=== PATIENT | male | born 1960 | race African-American/Black ===

== ENCOUNTER 2017-05-25 15:51 | Inpatient (IN) | payer SELFPAY ==
--- NOTE | 2017-05-25 17:49 | CT ---
CT HEAD WITHOUT CONTRAST: Date: 05/25/17 Multiple axial tomograms obtained through the head without IV enhancement. HISTORY: Left side weakness. No comparison. FINDINGS: The ventricles have normal size and position. No evidence of focal mass or hemorrhage. No evidence of cortical infarct. There is a subtle lucency seen in the right thalamus peripherally. Subacute thalamic lacunar infarct cannot be excluded. This could be further evaluated with MRI. The sinuses and mastoids are aerated. IMPRESSION: Subtle lucency in the region of the right thalamus. Subacute lacunar infarct not excluded. Consider f ollow-up MRI of brain to rule out acute or subacute lacunar infarct. There is no evidence of cortical infarct or hemorrhage. POS: [facility]
[2017-05-25 17:52] LABS: #Eosinphils 0.1 thou/uL (0.0-0.7); #Lymphocytes 2.6 thou/uL (1.20-3.40); #Monocytes 0.6 thou/uL (0.11-0.59); #Neutrophils 3.3 thou/uL (1.40-6.50); %Basophils 0.7 % (0.0-1.0); %Eosinophils 0.8 % (0.0-10.0); %Monocytes 8.6 % (0.0-10.0); %Neutrophils 49.9 % (42.0-75.0); Hemoglobin 12.8 g/dL (14.0-18.0); Mean Corpuscular HGB CONC 33.4 g/dL (32.0-36.0); Mean Corpuscular Hemoglobin 28.7 pg (27.0-31.0); Mean Corpuscular Volume 86.1 fl (80.0-94.0); Mean Platelet Volume 8.6 fL (7.4-10.4); Platelet Count 187 thou/uL (130-400); Red Blood Cell (RBC) Count 4.45 mill/uL (4.70-6.10); White Blood Cell (WBC) Count 6.6 thou/uL (4.8-10.8)
[2017-05-25 18:00] LABS: PTT 26.5 SEC (22.9-36.1); Prothrombin Time 12.8 SEC (12.0-14.7)
[2017-05-25 18:19] LABS: Anion Gap 14 mmol/L (10-20); BUN (Urea Nitrogen) 13 mg/dL (8.4-25.7); CK (CPK) 103 U/L (30-200); Calc. Creatinine Clearance 0 mL/min (70-130); Calcium 9.9 mg/dL (7.8-10.44); Carbon Dioxide 28 mmol/L (22-29); Chloride 97 mmol/L (98-107); Estimated GFR-MDRD 57; Glucose 236 mg/dL (70-105); Potassium 3.5 mmol/L (3.5-5.1); Sodium 135 mmol/L (136-145)
[2017-05-25 18:22] LABS: CKMB 1.5 ng/mL (0-6.6); Troponin I Less than 0.010 ng/mL (< 0.028)
[2017-05-25] MEDS ORDERED: Aspirin 325 MG TAB ONE (19:08)
[2017-05-25] MEDS ORDERED: Nitroglycerin 2% Ointment 1 INCH/1 GM Packet ONE (19:08)
[2017-05-25] MEDS ORDERED: Labetalol HCl 100 MG/20 ML VIAL ONE (19:08)
[2017-05-25] MEDS ORDERED: Acetaminophen 325 MG TAB PO PRN (19:44)
[2017-05-25] MEDS ORDERED: Bisacodyl 5 MG TAB PO PRN (19:44)
[2017-05-25] MEDS ORDERED: Acetaminophen 650 MG Suppository PR PRN (19:44)
[2017-05-25] MEDS ORDERED: Dextrose 5% in Water 1,000 ML IV PRN (19:47)
[2017-05-25] MEDS ORDERED: Dextrose 50% Abboject 50 ML SYRINGE SLOW IVP PRN (19:47)
--- NOTE | 2017-05-25 20:13 | HP ---
PRIMARY CARE PROVIDER: Dr. Shilpa Vallejo, she works at [employer] in [place], phone number CHIEF COMPLAINT: Weakness. HISTORY OF PRESENT ILLNESS: Mr. Rodriguez is a pleasant 56-year-old gentleman who was seen at [facility] on 05/25/2017. He reports that 3 days ago, he developed left-sided weakness. He also reports left-sided numbness. He also reports that he is unable to lift his left lower extremity while lying on bed. He also repor ts some pain below his left knee. When he walks, his left lower extremity drags. He was initially s een in [place]. There was no CT scan since it was broken. He was sent to [facility]. He denies any slurring of speech. He denies any facial droop or vision changes. He denies any nause a, vomiting, diarrhea, or abdominal pain. He reports that he is occasionally noncompliant with his medications because it makes him fatigue and he is unable to work from the fatigue. REVIEW OF SYSTEMS: The following complete review of systems was negative, unless otherwise mentioned in the HPI or below: Constitutional: Weight loss or gain, ability to conduct usual activities. Skin: Rash, itching. Eyes: Double vision, pain. ENT/Mouth: Nose bleeding, neck stiffness, pain, tenderness. Cardiovascular: Palpitations, dyspnea on exertion, orthopnea. Respiratory: Shortness of breath, wheezing, cough, hemoptysis, fever or night sweats. Gastrointestinal: Poor appetite, abdominal pain, heartburn, nausea, vomiting, constipation, or diarrhea. Genitourinary: Urgency, frequency, dysuria, nocturia. Musculoskeletal: Pain, swelling. Neurologic/Psychiatric: Anxiety, depression. Allergy/Immunologic: Skin rash, bleeding tendency. PAST MEDICAL HISTORY: Significant for hypertension, diabetes, and dyslipidemia. PAST SURGICAL HISTORY: None. FAMILY HISTORY: Significant for stroke in his paternal aunt. SOCIAL HISTORY: The patient denies tobacco use or recreational drug use. He drinks 1 or more alcoho lic beverages on most days. ALLERGIES: No known drug allergies. CURRENT MEDICATIONS: Include lisinopril 5 mg daily, glipizide 10 mg daily, metformin 1000 mg 2 times a day, simvastatin 40 mg daily. PHYSICAL EXAMINATION: GENERAL: Mr. Rodriguez is awake and alert, not in acute distress. VITAL SIGNS: Blood pressure is 152/106, pulse is 99, he is breathing at rate of 16, and saturating 9 8% on room air. He is afebrile. HEENT: No scleral icterus. No conjunctival pallor. ENT: Moist mucosal membranes, no oropharyngeal erythema or exudates. NECK: Supple, nontender, normal range of movement. Trachea is midline. RESPIRATORY: Accessory muscles of breathing are not active. Chest wall movements are symmetric bila terally. LUNGS: Clear to auscultation without wheeze, rhonchi or crepitations. CARDIOVASCULAR: S1 and S2 are heard, regular. LUNGS: Peripheral pulses palpable. No carotid bruit, no pericardial rub. ABDOMEN: Soft, nontender, bowel sounds heard, no hepatomegaly, no splenomegaly. NEUROLOGIC: Cranial nerves II-XII are intact. Power is 4+/5 in the left upper extremity, 3/5 in the left lower extremity, 5/5 in right upper and right lower extremity. He has diminished sensation ove r the left half of his body as well as face. Txemer-ed-uhfy test is normal. Rapid alternating movem ents are normal. Deep tendon reflexes are 2+. Plantar are downgoing bilaterally. MUSCULOSKELETAL: Power in the 4 extremities as described above. SKIN: No rashes or subcutaneous nodules. LYMPHATIC: No cervical lymphadenopathy. PSYCHIATRIC: Normal mood, normal affect, the patient is oriented to person, place, and time. LABORATORY DATA: Mr. Rodriguez's labs and investigations were reviewed. I reviewed his electrocardiogram , which shows normal sinus rhythm, no ST changes to suggest an acute coronary syndrome. I also revie wed noncontrast CT scan of the brain, which shows lucency in the region of the right thalamus. He whaley s a normal white count, normocytic anemia with hemoglobin of 12.8, normal platelet count, INR 1.0, de creased sodium of 135, normal potassium, and normal creatinine. Troponin I is less than 0.010. ASSESSMENT AND PLAN: Mr. Rodriguez is a pleasant 56-year-old gentleman who was seen at [facility] on 05/25/2017. His problem list includes: 1. Weakness: His presentation is consistent with a cerebrovascular accident. He will be admitted t o the [facility] to the stroke floor. We will get MRI of the brain, 2D echocardiogram, carotid Doppler s and Neurology Service consultation. 2. Diabetes mellitus. The patient is not clear whether he is compliant with his medications. Start insulin sliding scale and Accu-Cheks and resume home medications. 3. Hypertension: Monitor vital signs, titrate antihypertensives as needed. 4. Dyslipidemia: Continue statins. 5. Hyponatremia: Mild, recheck. Many thanks for allowing me to participate in your patient's care. Please feel free to contact me wi th any questions or concerns. LEVEL OF RISK: High. LEFT OF COMPLEXITY: High.
[2017-05-25] MEDS ORDERED: Atorvastatin Calcium 10 MG TAB PO SCH (21:00)
[2017-05-25 22:02] LABS: Troponin I Less than 0.010 ng/mL (< 0.028)
[2017-05-25 23:16] VITALS: BMI 28.9
[2017-05-26 01:35] LABS: Troponin I 0.014 ng/mL (< 0.028)
[2017-05-26 05:32] LABS: #Basophils 0.1 thou/uL (0.0-0.2); #Lymphocytes 2.3 thou/uL (1.20-3.40); #Monocytes 0.7 thou/uL (0.11-0.59); #Neutrophils 2.4 thou/uL (1.40-6.50); %Basophils 0.9 % (0.0-1.0); %Eosinophils 0.7 % (0.0-10.0); %Lymphocytes 42.1 % (21.0-51.0); %Monocytes 12.1 % (0.0-10.0); %Neutrophils 44.1 % (42.0-75.0); Hemoglobin 11.6 g/dL (14.0-18.0); Mean Corpuscular HGB CONC 33.1 g/dL (32.0-36.0); Mean Corpuscular Hemoglobin 28.6 pg (27.0-31.0); Mean Corpuscular Volume 86.5 fl (80.0-94.0); Mean Platelet Volume 8.6 fL (7.4-10.4); Platelet Count 169 thou/uL (130-400); RBC Distribution Width 14.1 % (11.5-14.5); Red Blood Cell (RBC) Count 4.05 mill/uL (4.70-6.10); White Blood Cell (WBC) Count 5.5 thou/uL (4.8-10.8)
[2017-05-26 05:40] LABS: Anion Gap 15 mmol/L (10-20); BUN (Urea Nitrogen) 18 mg/dL (8.4-25.7); Calc. Creatinine Clearance 61 mL/min (70-130); Calcium 9.4 mg/dL (7.8-10.44); Carbon Dioxide 25 mmol/L (22-29); Cardiac Risk 9.1 (Less than 4.5); Chloride 96 mmol/L (98-107); Cholesterol 317 mg/dl (< 200 Desired); Estimated GFR-MDRD 51; Glucose 341 mg/dL (70-105); HDL Cholesterol 35 mg/dL (>60 Neg Risk); Potassium 3.6 mmol/L (3.5-5.1); Sodium 132 mmol/L (136-145); Triglycerides 431 mg/dL (Less than 150)
[2017-05-26] MEDS: HumaLOG 300 UNITS/3 ML VIAL SC PRN ×4 (05:44→20:32)
[2017-05-26] MEDS ORDERED: Lorazepam 2 MG/ML VIAL SLOW IVP SCH (10:15)
[2017-05-26] MEDS: Aspirin 325 mg Enteric Coated Tablet PO SCH (10:46)
[2017-05-26] MEDS: Enoxaparin Sodium 40 MG/0.4 ML SYRINGE SC SCH (10:47)
[2017-05-26] MEDS: glipiZIDE 5 MG TAB PO SCH (10:47)
--- NOTE | 2017-05-26 12:14 | ULT ---
ULTRASOUND CAROTID DOPPLER: Date: 05/26/17 HISTORY: CVA. COMPARISON: None. FINDINGS: There is mild increased peak systolic velocity of distal left internal carotid up to 133 cm/second. I ncreased flow in left vertebral artery. Antegrade flow right vertebral artery. IMPRESSION: 50-69% stenosis distal left internal carotid artery. CT angiogram recommended. CODE T. POS: [facility]
--- NOTE | 2017-05-26 14:43 | MRI ---
MRI BRAIN WITHOUT IV CONTRAST: 05/26/2017 HISTORY: Left-sided weakness. Abnormal CT head. COMPARISON: CT head from 05/25/2017. FINDINGS: Corresponding to the low density area in the right thalamus on the CT exam, there is an oval-shaped a jessy of increased FLAIR and T2 weighted signal intensity seen in the right thalamus, which does not de monstrate restricted diffusion and is likely related to a more remote lacunar infarction. There is n o acute infarction visualized. There is mild cerebral volume loss, not unexpected for the patient's age. The septum pellucidum and third ventricle are in the midline. Grossly appropriate flow voids are demonstrated at the base of t he brain. There is prominent motion artifact on this exam, but this exam is diagnostic. The paranasal sinuses, orbits, and skull base have a normal MRI appearance. Incidental note is made of an empty sella turcica. IMPRESSION: 1. Findings most compatible with a remote lacunar infarction in the right thalamus. No acute infarc tion is appreciated. 2. Mild cerebral and cerebellar volume loss. 3. Incidental note made of an empty sella turcica. POS: [facility]
--- NOTE | 2017-05-26 16:43 | PDOC.PN ---
- Subjective Encounter Start Date: 05/26/17 Encounter Start Time: 11:00 Pt seen for followup re: weakness. Reports LLE strength is better. No chest pain, shortness of breath, fevers or chills. - Objective MAR Reviewed: Yes Vital Signs & Weight: Vital Signs (12 hours) Temp Pulse Pulse Pulse Resp BP BP 05/26/17 16:00 98.0 F 84 16 05/26/17 12:00 98.1 F 86 14 05/26/17 11:56 86 87 137/83 166/90 H 05/26/17 07:46 85 88 155/84 H 143/81 H 05/26/17 07:30 98.5 F 84 16 05/26/17 07:20 98.6 F 84 16 BP Pulse Ox 05/26/17 16:00 150/85 H 96 05/26/17 12:00 137/86 100 05/26/17 11:56 05/26/17 07:46 05/26/17 07:30 98 05/26/17 07:20 155/84 H 98 I&O: 05/25/17 05/26/17 05/27/17 06:59 06:59 06:59 Intake Total 600 Output Total 350 Balance 250 Result Diagrams: 05/26/17 05:15 05/26/17 05:15 Additional Labs: Accuchecks 05/26/17 05/26/17 05/26/17 15:52 11:07 05:36 POC Glucose 294 H 305 H 323 H EKG Reviewed by me: Yes (Tele: NSR) Phys Exam - Physical Examination Constitutional: NAD HEENT: PERRLA, moist MMs, sclera anicteric, oral pharynx no lesions Neck: no nodes, no JVD, supple, full ROM Respiratory: no wheezing, no rales, no rhonchi, clear to auscultation bilateral Cardiovascular: RRR, no rub Gastrointestinal: soft, non-tender, no distention, positive bowel sounds Musculoskeletal: pulses present Neurological: moves all 4 limbs Power 3+/3 LLE, 4+/5 LUE, 5/5 RUE and RLE Psychiatric: normal affect Skin: no rash Dx/Plan (1) Weakness Code(s): R53.1 - WEAKNESS Status: Acute (2) Ischemic cerebrovascular accident (CVA) Code(s): I63.9 - CEREBRAL INFARCTION, UNSPECIFIED Status: Suspected (3) DM2 (diabetes mellitus, type 2) Status: Chronic (4) HTN (hypertension) Code(s): I10 - ESSENTIAL (PRIMARY) HYPERTENSION Status: Chronic (5) Dyslipidemia Code(s): E78.5 - HYPERLIPIDEMIA, UNSPECIFIED Status: Chronic - Plan PT/OT, out of bed/ambulate * . Continue aspirin, statin. Continue accuchecks, insulin sliding scale. Monitor vital signs, titrate antihypertensives as needed. Review of Systems - Review of Systems Constitutional: weakness. negative: fever, chills, sweats, malaise Respiratory: negative: Cough, Dry, Shortness of Breath, Hemoptysis, SOB with Excertion, Pleuritic Pain, Sputum, Wheezing Cardiovascular: negative: chest pain, palpitations, orthopnea, paroxysmal nocturnal dyspnea, edema, light headedness Gastrointestinal: negative: Nausea, Vomiting, Abdominal Pain, Diarrhea, Constipation, Melena, Hematochezia Genitourinary: negative: Dysuria, Frequency, Incontinence, Hematuria, Retention Neurological: Weakness - Medications/Allergies Allergies/Adverse Reactions: Allergies Allergy/AdvReac Type Severity Reaction Status Date / Time No Known Drug Allergies Allergy Verified 05/25/17 23:40 Medications: Current Medications Acetaminophen (Tylenol) 650 mg PO Q4H PRN PRN Reason: Headache/Fever or Pain Acetaminophen (Tylenol) 650 mg [place] Q4H PRN PRN Reason: Headache/Fever or Pain Aspirin (Ecotrin) 325 mg PO DAILY [facility] Last Admin: 05/26/17 10:46 Dose: 325 mg Atorvastatin Calcium (Lipitor) 20 mg PO HS [facility] Bisacodyl (Dulcolax) 10 mg PO DAILYPRN PRN PRN Reason: Constipation Dextrose/Water (Dextrose 50%) 25 gm SLOW IVP PRN PRN PRN Reason: Hypoglycemia Enoxaparin Sodium (Lovenox) 40 mg SC 0900 [facility] Last Admin: 05/26/17 10:47 Dose: 40 mg Glipizide (Glucotrol) 5 mg PO DAILY [facility] Last Admin: 05/26/17 10:47 Dose: 5 mg Glucagon (Glucagon) 1 mg IM PRN PRN PRN Reason: Hypoglycemia Dextrose/Water (D5w) 1,000 mls @ 0 mls/hr IV .Q0M PRN; As Directed PRN Reason: Hypoglycemia Sodium Chloride (Normal Saline 0.9%) 1,000 mls @ 100 mls/hr IV .Q10H PARVIN Influenza Virus Vaccine (Fluzone Quad [id number] Syringe) 0.5 ml IM .ONCE ONE Stop: 05/27/17 09:01 Insulin Human Lispro (Humalog) 0 units SC .MILD SLIDING SCALE PRN PRN Reason: Mild Correctional Scale Last Admin: 05/26/17 16:29 Dose: 4 unit Pneumococcal Polyvalent Vaccine (Pneumovax 23) 0.5 ml IM .ONCE ONE Stop: 05/27/17 09:01
[2017-05-26] MEDS: Sodium Chloride 0.9% 1,000 ML IV SCH (17:37)
--- NOTE | 2017-05-26 20:55 | CON ---
DATE OF CONSULTATION: 05/26/2017 CONSULTING PHYSICIAN: Hospitalist Service. IMPRESSION: 1. Right thalamic stroke with hemisensory deficit on the left. 2. Hypertension. 3. Diabetes. PLAN: 1. Aspirin 81 mg per day. 2. Restart statin. 3. Patient can be discharged home. HISTORY: Mr. Rodriguez is a 56-year-old man who presented with acute onset of left-sided numbness and rosendo e mild incoordination. He never had any symptoms like this in the past. His initial CT showed small area of ischemia in the right thalamus. His carotid ultrasound does not show any stenosis. Echocar diogram is pending. He was not compliant with his statin. He was not taking aspirin daily. PAST MEDICAL HISTORY: As listed above. ALLERGIES: None. SOCIAL HISTORY: No tobacco or illicit drug use. FAMILY HISTORY: Noncontributory. REVIEW OF SYSTEMS: No complaint of headache, nausea, vomiting, vertigo, double vision, trouble swall owing or trouble speaking. PHYSICAL EXAMINATION: GENERAL: He is a healthy-appearing middle-aged man in no distress. HEENT: Pupils are equal and reactive. Conjunctivae clear. Oropharynx clear. NECK: Supple. EXTREMITIES: No cyanosis or edema. NEUROLOGIC: He is alert and appropriate. Hi speech is fluent and clear. Cranial nerves are intact other than diminished facial sensation on the left jaw. 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 He can walk independently with a mild limp. EKG shows sinus rhythm. SUMMARY: A middle-aged man with risk factors for small-vessel disease. He seems to be doing well de spite his thalamic stroke. I would be happy to follow up with him as an outpatient.
[2017-05-26] MEDS ORDERED: Atorvastatin Calcium 20 MG TAB PO SCH (21:00)
[2017-05-27] MEDS: Sodium Chloride 0.9% 1,000 ML IV SCH (04:04)
[2017-05-27] MEDS: HumaLOG 300 UNITS/3 ML VIAL SC PRN (05:32)
[2017-05-27 06:02] LABS: #Monocytes 0.7 thou/uL (0.11-0.59); #Neutrophils 2.1 thou/uL (1.40-6.50); %Basophils 0.6 % (0.0-1.0); %Eosinophils 0.9 % (0.0-10.0); %Lymphocytes 41.2 % (21.0-51.0); %Neutrophils 43.3 % (42.0-75.0); Hemoglobin 11.5 g/dL (14.0-18.0); Mean Corpuscular HGB CONC 32.3 g/dL (32.0-36.0); Mean Corpuscular Hemoglobin 28.1 pg (27.0-31.0); Mean Platelet Volume 8.9 fL (7.4-10.4); Platelet Count 191 thou/uL (130-400); RBC Distribution Width 14.2 % (11.5-14.5); White Blood Cell (WBC) Count 4.9 thou/uL (4.8-10.8)
[2017-05-27 06:28] LABS: Anion Gap 12 mmol/L (10-20); BUN (Urea Nitrogen) 16 mg/dL (8.4-25.7); Calc. Creatinine Clearance 89 mL/min (70-130); Calcium 9.2 mg/dL (7.8-10.44); Carbon Dioxide 27 mmol/L (22-29); Chloride 99 mmol/L (98-107); Estimated GFR-MDRD 79; Glucose 268 mg/dL (70-105); Potassium 3.9 mmol/L (3.5-5.1); Sodium 134 mmol/L (136-145)
[2017-05-27] MEDS ORDERED: FLU VACC QS2017-18 36 mo. & older 0.5 ML SYRINGE IM ONE (09:00)
--- NOTE | 2017-05-27 09:55 | CT ---
CT ANGIOGRAM NECK WITH IV CONTRAST AND 3D RECONSTRUCTIONS: DATE: 05/27/17. HISTORY: Recent CVA. Evaluate for carotid stenosis. TECHNIQUE: Contiguous axial CT images are obtained through the neck from the level of the aortic arch to the bas e of the brain after the administration of intravenous contrast. Three-D reconstruction images are p rovided. FINDINGS: There is a normal arrangement of the great vessels at the aortic arch which are patent. There is pro minent streak artifact through the region of the innominate artery and most proximal right internal c arotid artery limiting adequate evaluation, but the vessels in this location do appear patent. Bilat eral subclavian arteries are patent and the bilateral common carotid arteries are otherwise widely pa tent. The bilateral internal and external carotid arteries are patent. There is mild atheroscleroti c plaque seen involving the proximal left internal carotid artery, but there is less than 50% maximal stenosis according to NASCET criteria. No significant atherosclerotic narrowing is seen involving t he right internal carotid artery again based on MASCET criteria. The bilateral vertebral arteries are patent. The left vertebral artery is dominant. The visualized basilar artery is patent. The bilateral parotid glands and submandibular glands have a normal appearance. The thyroid gland is normal in appearance. The lung apices are clear. IMPRESSION: 1. Mild atherosclerotic narrowing seen at the origin and involving the proximal left internal caroti d artery, but there is less than 50% maximal stenosis involving the left internal carotid artery. 2. The right internal carotid artery is widely patent. 3. Patent bilateral vertebral arteries. POS: [facility]
[2017-05-27] MEDS: glipiZIDE 5 MG TAB PO SCH (10:08)
[2017-05-27] MEDS: Enoxaparin Sodium 40 MG/0.4 ML SYRINGE SC SCH (10:09)
[2017-05-27] MEDS: Aspirin 325 mg Enteric Coated Tablet PO SCH (10:09)
--- NOTE | 2017-05-27 12:17 | PDOC.PN ---
- Subjective Encounter Start Date: 05/27/17 Encounter Start Time: 07:00 Pt seen for followup re: weakness. Denies chest pain, shortness of breath, fevers or chills. Able to move LLE better. - Objective MAR Reviewed: Yes Vital Signs & Weight: Vital Signs (12 hours) Temp Pulse Resp BP Pulse Ox 05/27/17 11:40 98 F 85 20 153/93 H 99 05/27/17 08:10 97.6 F 100 20 97 05/27/17 08:00 97.6 F 100 20 134/79 100 05/27/17 04:00 98.5 F 87 16 125/83 98 05/27/17 00:22 98.2 F 90 16 137/72 98 I&O: 05/26/17 05/27/17 05/28/17 06:59 06:59 06:59 Intake Total 2464 Output Total 2650 Balance -186 Result Diagrams: 05/27/17 05:31 05/27/17 05:31 Additional Labs: Accuchecks 05/27/17 05/27/17 05/26/17 11:39 05:32 20:33 POC Glucose 219 H 260 H 279 H 05/26/17 15:52 POC Glucose 294 H EKG Reviewed by me: Yes (Tele: NSR) Phys Exam - Physical Examination Constitutional: NAD HEENT: moist MMs Neck: supple Respiratory: clear to auscultation bilateral Cardiovascular: RRR Gastrointestinal: soft Power 3+/5 LLE, 4+/5 LUE Psychiatric: normal affect Skin: no rash Dx/Plan (1) Weakness Code(s): R53.1 - WEAKNESS Status: Acute (2) Ischemic cerebrovascular accident (CVA) Code(s): I63.9 - CEREBRAL INFARCTION, UNSPECIFIED Status: Suspected (3) DM2 (diabetes mellitus, type 2) Status: Chronic (4) HTN (hypertension) Code(s): I10 - ESSENTIAL (PRIMARY) HYPERTENSION Status: Chronic (5) Dyslipidemia Code(s): E78.5 - HYPERLIPIDEMIA, UNSPECIFIED Status: Chronic (6) Noncompliance with medication regimen Code(s): Z91.14 - PATIENT'S OTHER NONCOMPLIANCE WITH MEDICATION REGIMEN Status : Chronic - Plan PT/OT, out of bed/ambulate * . Continue aspirin, statin. Monitor vital signs, titrate antihypertensives as needed. Continue insulin sliding scale, accuchecks. Review of Systems - Review of Systems Respiratory: negative: Cough, Dry, Shortness of Breath, Hemoptysis, SOB with Excertion, Pleuritic Pain, Sputum, Wheezing Cardiovascular: negative: chest pain, palpitations, orthopnea, paroxysmal nocturnal dyspnea, edema, light headedness Neurological: Weakness - Medications/Allergies Allergies/Adverse Reactions: Allergies Allergy/AdvReac Type Severity Reaction Status Date / Time No Known Drug Allergies Allergy Verified 05/25/17 23:40 Medications: Current Medications Acetaminophen (Tylenol) 650 mg PO Q4H PRN PRN Reason: Headache/Fever or Pain Last Admin: 05/27/17 04:11 Dose: 650 mg Acetaminophen (Tylenol) 650 mg [place] Q4H PRN PRN Reason: Headache/Fever or Pain Aspirin (Ecotrin) 325 mg PO DAILY [facility] Last Admin: 05/27/17 10:09 Dose: 325 mg Atorvastatin Calcium (Lipitor) 20 mg PO HS [facility] Last Admin: 05/26/17 20:29 Dose: 20 mg Bisacodyl (Dulcolax) 10 mg PO DAILYPRN PRN PRN Reason: Constipation Dextrose/Water (Dextrose 50%) 25 gm SLOW IVP PRN PRN PRN Reason: Hypoglycemia Enoxaparin Sodium (Lovenox) 40 mg SC 0900 [facility] Last Admin: 05/27/17 10:09 Dose: 40 mg Glipizide (Glucotrol) 5 mg PO DAILY [facility] Last Admin: 05/27/17 10:08 Dose: 5 mg Glucagon (Glucagon) 1 mg IM PRN PRN PRN Reason: Hypoglycemia Dextrose/Water (D5w) 1,000 mls @ 0 mls/hr IV .Q0M PRN; As Directed PRN Reason: Hypoglycemia Sodium Chloride (Normal Saline 0.9%) 1,000 mls @ 100 mls/hr IV .Q10H [facility] Last Admin: 05/27/17 04:04 Dose: 1,000 mls Insulin Human Lispro (Humalog) 0 units SC .MILD SLIDING SCALE PRN PRN Reason: Mild Correctional Scale Last Admin: 05/27/17 05:32 Dose: 4 unit
[2017-05-27] MEDS ORDERED: Iopamidol 370 76% 100 ML VIAL ONE (12:44)
[2017-05-27 15:20] VITALS: BP 135/78; TEMP 98.1
--- NOTE | 2017-05-28 00:34 | DIS ---
DATE OF ADMISSION: 05/25/2017 DATE OF DISCHARGE: 05/27/2017 PRIMARY CARE PROVIDER: YONI Gunn in [place], [place]. DISCHARGE DIAGNOSES: 1. Weakness. 2. Right thalamic stroke with hemisensory deficit on the left. SECONDARY DIAGNOSES: Hypertension, dyslipidemia, diabetes mellitus, and medication noncompliance. CONDITION OF PATIENT ON THE DAY OF DISCHARGE: Stable. I assessed Mr. Rodriguez on the day of discharge. Please refer to my daily hospitalist's progress note for further details regarding this [id number] encounter. DISCHARGE MEDICATIONS: Aspirin 325 mg daily, glipizide 5 mg daily, lisinopril 5 mg daily, metformin 1000 mg daily, and simvastatin 40 mg daily. HOSPITAL COURSE: Mr. Rodriguez is a pleasant 56-year-old gentleman who was admitted to [facility] for left-sided weakness and numbness on 05/25/2017. He was seen by Neurology Service as well as by Therapy Services. He improved in terms of strength, although he continues to have sig nificant left lower extremity weakness. A 2D echocardiogram on 05/26/2017, showed left ventricular ejection fraction of 60% to 65%, normal ri ght ventricular size and function, normal sized left atrium, normal sized right atrium, mild mitral r egurgitation, mild tricuspid regurgitation and pulmonic regurgitation. He also had MRI of the brain on 05/26/2017, which showed findings most compatible with remote lacunar infarct in the right thalamu s. He also had an incidental finding of an empty sella turcica. His TSH was normal. He also had ca rotid Dopplers on 05/26/2017, which showed 50% to 69% stenosis of the distal left internal carotid ar danielle. He went on to have CT angiogram on 05/27/2017, after hydration because his creatinine was elev ated on 05/26/2017. It showed mild atherosclerotic narrowing at the origin and involving the proxima l left internal carotid artery, but less than 50% maximal stenosis involving the left internal caroti d artery. Right internal carotid artery was widely patent. His creatinine normalized on 05/27/2017. Medication compliance and its importance were emphasized to him by me. Many thanks for allowing me to participate in your patient's care. Please feel free to contact me wi th any questions or concerns. On the day of discharge, he has a white count of 4900, hemoglobin 11.5, platelet count 191,000. Sodi um 134, creatinine 1.15, and potassium 3.9. CONSULTATIONS DURING THIS HOSPITALIZATION: Neurology, Dr. Ornelas. DISCHARGE DESTINATION: Home. TOTAL AMOUNT OF TIME SPENT AND COORDINATING THIS DISCHARGE: Thirty eight minutes.
[2017-05-28] MEDS ORDERED: Lisinopril 5 MG TAB PO SCH (09:00)
--- NOTE | 2017-05-31 13:07 | EKG ---
Test Reason : LEFT SIDE WEAKNESS Blood Pressure : / mmHG Vent. Rate : 097 BPM Atrial Rate : 097 BPM P-R Int : 148 ms QRS Dur : 082 ms QT Int : 344 ms P-R-T Axes : 065 003 113 degrees QTc Int : 436 ms Normal sinus rhythm Possible Left atrial enlargement T wave abnormality, consider lateral ischemia Abnormal ECG Confirmed by APOORVA SOSA, MARY Mart ([id number]), fashion editor TAMMY FROST ([id number]) on 05/31/2017 1:06:58 PM Referred By: DR CARRERA Confirmed By:MARY GUERIN MD
== END 2017-05-27 17:42 | disposition home or self-care (01) | DRG 65 ==
LOC: ERS 15:51 → 2SE 20:34
PROVIDERS: ADMIT Internal Medicine; ATTEND Internal Medicine
DX: I63.449 Cerebral infarction due to embolism of unspecified cerebellar artery (principal); E87.1 Hypo-osmolality and hyponatremia; G81.94 Hemiplegia, unspecified affecting left nondominant side; Z91.14 Patient's other noncompliance with medication regimen; E11.9 Type 2 diabetes mellitus without complications; I10 Essential (primary) hypertension; E78.5 Hyperlipidemia, unspecified; Z79.84 Long term (current) use of oral hypoglycemic drugs; Z79.82 Long term (current) use of aspirin
CPT/HCPCS: 36415; 36416; 70450; 70498; 70551; 80048; 80061; 82553; 84443; 84484; 85025; 85610; 85730; 93005; 93306; 93880; 96374; G8978-GP-CL; G8979-GP-CJ; G8987-GO-CJ; G8988-GO-CI; G8996-GN-CH; G8997-GN-CH; G8998-GN-CH; J1650; J2060